=== PATIENT | female | born 1990 | race Asian ===

== ENCOUNTER 2017-04-15 07:58 | Inpatient (IN) | payer MEDICAID ==
[~2017-04-15] VITALS: Ht 160 cm; Wt 74.8 kg
[2017-04-15] MEDS ORDERED: LACTATED RINGERS 1,000 ML IV SCH (08:12)
[2017-04-15] MEDS ORDERED: DEXT 5%/LR + PITOCIN 20UNITS/L 1,000 ML IV SCH ×2 (08:12→08:36)
[2017-04-15] MEDS ORDERED: METHYLERGONOVINE MALEATE 0.2 MG/ML IM PRN (08:15)
[2017-04-15] MEDS ORDERED: MISOPROSTOL 100MCG TABLET VG SCH (08:15)
[2017-04-15] MEDS ORDERED: BUTORPHANOL TARTRATE 2 MG/ML VIAL IV PRN (08:15)
[2017-04-15] MEDS ORDERED: LIDOCAINE HCL 1% 20ML VIAL (Pyxis) INJ INFIL SCH (08:15)
[2017-04-15] MEDS ORDERED: BUTORPHANOL TARTRATE 2 MG/ML VIAL ONE (08:16)
[2017-04-15] MEDS ORDERED: FENTANYL CITRATE/PF 50MCG/ML 2ML VIAL ONE (08:19)
[2017-04-15] MEDS ORDERED: MIDAZOLAM HCL 2 MG/2 ML VIAL ONE (08:20)
[2017-04-15] MEDS ORDERED: PROPOFOL 200MG/20ML VIAL IV ONE (08:25)
[2017-04-15] MEDS ORDERED: ACETAMINOPHEN 500MG TABLET PO PRN (08:45)
[2017-04-15] MEDS ORDERED: RHO(D) IMMUNE GLOBULIN 300 MCG/SYR IM PRN (08:45)
[2017-04-15] MEDS ORDERED: BENZOCAINE/LANOLIN/ALOE VERA SPRAY TOP PRN (08:45)
[2017-04-15] MEDS ORDERED: INFLUENZA VIRUS VACCINE 0.5ML SYR IM ONE (08:45)
[2017-04-15] MEDS ORDERED: IBUPROFEN 600MG TABLET PO PRN (08:45)
[2017-04-15] MEDS ORDERED: GLYCERIN/WITCH HAZEL LEAF MEDICATED PAD TOP PRN (08:45)
[2017-04-15] MEDS ORDERED: HEMORRHOIDAL SUPP PR PRN (08:45)
[2017-04-15] MEDS ORDERED: TETANUS, DIPHTHERIA, PERTUSSIS VAC/PF 0.5ML (>7YR OLD) IM ONE (08:45)
[2017-04-15] MEDS ORDERED: LANOLIN OINT 0.25 GM TUBE TOP PRN (08:45)
[2017-04-15] MEDS ORDERED: DIPHENHYDRAMINE 25MG CAPSULE PO PRN (08:45)
[2017-04-15] MEDS ORDERED: WATER IV SCH (09:00)
[2017-04-15] MEDS ORDERED: AMPICILLIN 2,000 MG in SODIUM CHLORIDE 0.9% 100 ML IV SCH (09:00)
[2017-04-15] MEDS ORDERED: PRENATAL VIT/FE FUMARATE/FA TABLET PO SCH (09:00)
[2017-04-15] MEDS ORDERED: AMPICILLIN IV SCH (09:00)
[2017-04-15] MEDS ORDERED: DEXT 5% IV SCH (09:00)
[2017-04-15] MEDS ORDERED: GENTAMICIN 120MG PREMIX 100 ML IV SCH (10:30)
[2017-04-15 10:55] LABS: BASOPHILS % 0.3 % (0.0-2.0); EOSINOPHILS % 0.3 % (0.0-5.0); HEMATOCRIT. 31.1 % (36.0-48.0); HEMOGLOBIN. 10.7 g/dL (12.0-16.0); LYMPHOCYTES % 14.5 % (20.0-50.0); MEAN CORPUSCULAR HEMOGLOBIN 30.2 pg (28.0-32.0); MEAN CORPUSCULAR VOLUME 87.9 fL (81.0-99.0); MEAN PLATELET VOLUME 7.7 fl (7.4-10.4); MONOCYTES % 5.6 % (2.0-8.0); NEUTROPHILS % 79.3 % (40.0-76.0); PLATELET 373 x1000/uL (130-400); RED BLOOD CELL COUNT 3.54 mill/uL (4.2-5.4); RED CELL DISTRIBUTION WIDTH 13.4 % (11.6-14.6)
[2017-04-15 10:58] LABS: CLARITY URINE CLEAR (CLEAR); COLOR URINE DARK YELLOW (YELLOW); GLUCOSE URINE NEGATIVE (NEGATIVE); KETONES URINE NEGATIVE (NEGATIVE); LEUKOCYTE ESTERASE URINE NEGATIVE (NEGATIVE); NITRITE URINE NEGATIVE (NEGATIVE); OCCULT BLOOD URINE TRACE (NEGATIVE); PH URINE 5.5 (4.5-8.0); PROTEIN URINE 3+ (NEGATIVE); SPECIFIC GRAVITY URINE 1.035 (1.005-1.030)
[2017-04-15 11:02] LABS: CHLORIDE 108 mEq/L (98-107)
[2017-04-15 11:04] LABS: PARTIAL THROMBOPLASTIN TIME 27.1 sec (23.4-31.0); PROTHROMBIN TIME 10.2 sec (9.4-11.6)
[2017-04-15 11:13] LABS: CARBON DIOXIDE 26 mEq/L (21-32)
[2017-04-15 11:14] LABS: D-DIMER 9.04 mg/L FEU (<0.50)
[2017-04-15 11:18] LABS: *AMPHETAMINES SCREEN URINE NEGATIVE (NEGATIVE); *BARBITURATES SCREEN URINE NEGATIVE (NEGATIVE); *BENZODIAZEPINES SCREEN URINE NEGATIVE (NEGATIVE); METHADONE URINE SCREEN NEGATIVE (NEGATIVE); OPIATES URINE SCREEN NEGATIVE (NEGATIVE); PHENCYCLIDINE URINE SCREEN NEGATIVE (NEGATIVE)
[2017-04-15 11:36] LABS: CANNABINOID URINE SCREEN PRESUMTIVE POSITIVE (NEGATIVE)
[2017-04-15 11:37] LABS: *COCAINE SCREEN URINE PRESUMTIVE POSITIVE (NEGATIVE)
[2017-04-15] MEDS: ACETAMINOPHEN WITH CODEINE 300/30MG TABLET PO PRN ×2 (11:37→15:16)
[2017-04-15 11:42] LABS: HEPATITIS B SURFACE ANTIGEN NEGATIVE; RUBELLA IGG 37.7 IU/mL (4.99-10)
[2017-04-15 12:58] VITALS: BP 121/86
[2017-04-15] MEDS ORDERED: ALBUTEROL (0.083%) 2.5MG/3ML NEB HHN NR (14:00)
[2017-04-15 14:05] VITALS: BP 133/75
[2017-04-15 15:16] VITALS: BP 133/75
[2017-04-15] MEDS ORDERED: NON FORMULARY PATIENT HOME MED EA ORI SCH (15:45)
[2017-04-15] MEDS ORDERED: GENTAMICIN 80MG PREMIX 100 ML IV SCH (20:00)
[2017-04-15] MEDS ORDERED: SODIUM CHLORIDE 0.9% IV SCH (20:00)
[2017-04-15] MEDS ORDERED: GENTAMICIN SULFATE IV SCH (20:00)
[2017-04-15] MEDS ORDERED: ALBUTEROL (0.083%) 2.5MG/3ML NEB HHN SCH (20:00)
[2017-04-15] MEDS ORDERED: DOCUSATE SODIUM 100MG CAPSULE PO SCH (21:00)
[2017-04-16] MEDS ORDERED: FERROUS SULFATE 325MG TABLET PO SCH (12:10)
== END 2017-04-15 18:15 | disposition left against medical advice (07) | DRG 560 ==
LOC: L&D 07:58 → 7EST PP/OB 12:34
PROVIDERS: ADMIT Specialist; ATTEND Specialist
PROC: 0HQ9XZZ Repair Perineum Skin, External Approach (ICD-10-PCS; 2017-04-15)
PROC: 10J17ZZ Inspection of Products of Conception, Retained, Via Natural or Artificial Opening (ICD-10-PCS; principal; 2017-04-15 07:50)
DX: O90.89 Other complications of the puerperium, not elsewhere classified (principal); Z37.0 Single live birth; O99.345 Other mental disorders complicating the puerperium; F41.9 Anxiety disorder, unspecified; Z53.21 Procedure and treatment not carried out due to patient leaving prior to being seen by health care provider; O43.90 Unspecified placental disorder, unspecified trimester; F17.200 Nicotine dependence, unspecified, uncomplicated; O99.315 Alcohol use complicating the puerperium; O99.335 Smoking (tobacco) complicating the puerperium; Z91.410 Personal history of adult physical and sexual abuse; Z72.89 Other problems related to lifestyle; O70.0 First degree perineal laceration during delivery
CPT/HCPCS: 36415; 80053; 80305; 80349; 80353; 81001; 82565; 84550; 85025; 85379; 85384; 85610; 85730; 86592; 86703; 86762; 86850; 86900; 87340; 94640; 99281; J0290; J0595; J1580; J2250; J2590; J2704; J3010; J3490; J7050; J7060; J7611

== ENCOUNTER 2017-04-22 10:59 | Emergency (ER) | payer MEDICAID ==
[~2017-04-22] VITALS: Ht 160 cm; Wt 74.0 kg
[2017-04-22 14:16] LABS: PROTHROMBIN TIME 10.5 sec (9.4-11.6)
[2017-04-22 14:21] LABS: BASOPHILS % 0.8 % (0.0-2.0); EOSINOPHILS % 2.9 % (0.0-5.0); HEMATOCRIT. 32.4 % (36.0-48.0); HEMOGLOBIN. 10.8 g/dL (12.0-16.0); MEAN CORPUSCULAR HEMOGLOBIN 29.9 pg (28.0-32.0); MEAN CORPUSCULAR VOLUME 89.9 fL (81.0-99.0); MEAN PLATELET VOLUME 7.1 fl (7.4-10.4); MONOCYTES % 4.3 % (2.0-8.0); PLATELET 606 x1000/uL (130-400)
[2017-04-22 14:25] LABS: CARBON DIOXIDE 25 mEq/L (21-32); CHLORIDE 106 mEq/L (98-107)
[2017-04-22 14:26] LABS: GLUCOSE URINE NEGATIVE (NEGATIVE); KETONES URINE NEGATIVE (NEGATIVE); LEUKOCYTE ESTERASE URINE NEGATIVE (NEGATIVE); NITRITE URINE NEGATIVE (NEGATIVE); OCCULT BLOOD URINE TRACE (NEGATIVE); PROTEIN URINE 1+ (NEGATIVE); SPECIFIC GRAVITY URINE 1.087 (1.005-1.030)
[2017-04-22 14:32] LABS: CLARITY URINE CLEAR (CLEAR); COLOR URINE YELLOW (YELLOW)
[2017-04-22] MEDS ORDERED: ACETAMINOPHEN 500MG TABLET PO ONE (16:15)
[2017-04-22 19:40] VITALS: BP 126/84
[2017-04-22 19:44] LABS: *AMPHETAMINES SCREEN URINE NEGATIVE (NEGATIVE); *BARBITURATES SCREEN URINE NEGATIVE (NEGATIVE); *BENZODIAZEPINES SCREEN URINE NEGATIVE (NEGATIVE); METHADONE URINE SCREEN NEGATIVE (NEGATIVE); PHENCYCLIDINE URINE SCREEN NEGATIVE (NEGATIVE)
[2017-04-22 19:45] LABS: *COCAINE SCREEN URINE PRESUMTIVE POSITIVE (NEGATIVE); CANNABINOID URINE SCREEN PRESUMTIVE POSITIVE (NEGATIVE); OPIATES URINE SCREEN PRESUMTIVE POSITIVE (NEGATIVE)
== END 2017-04-22 19:59 | disposition home or self-care (01) ==
LOC: ER 11:47
DX: N39.0 Urinary tract infection, site not specified (principal); D64.9 Anemia, unspecified; F17.200 Nicotine dependence, unspecified, uncomplicated
CPT/HCPCS: 36415; 76856; 80053; 80305; 81001; 81025; 83690; 84702; 85025; 85610; 99285

== ENCOUNTER 2017-05-07 13:22 | Emergency (ER) | payer MEDICAID ==
[~2017-05-07] VITALS: Ht 160 cm; Wt 73.0 kg
[~2017-05-07 13:22] MED LIST: LORA2TAB95 PO
[2017-05-07] MEDS ORDERED: METR500T4 PO (14:53)
[2017-05-07] MEDS ORDERED: DOXY100C2 PO (14:53)
[2017-05-07] MEDS ORDERED: OLAN10TA19 PO (14:53)
[2017-05-07] MEDS: SODIUM CHLORIDE 0.9% 1,000 ML IV NR ×2 (15:52→16:03)
[2017-05-07 16:42] VITALS: BP 150/89
== END 2017-05-07 17:34 | disposition home or self-care (01) ==
LOC: ER 14:00
DX: O90.89 Other complications of the puerperium, not elsewhere classified (principal); F41.9 Anxiety disorder, unspecified; R51 Headache
CPT/HCPCS: 81025; 93005; 96360; 99284; Z7610

== ENCOUNTER 2017-05-20 18:12 | Emergency (ER) | payer MEDICAID ==
[~2017-05-20] VITALS: Ht 157.5 cm; Wt 78.0 kg
[~2017-05-20 18:12] MED LIST changes: +DOXY100C2 PO; +METR500T4 PO; +OLAN10TA19 PO
[2017-05-20] MEDS ORDERED: DIPHENHYDRAMINE 50MG/ML VIAL IV STA (18:32)
[2017-05-20] MEDS ORDERED: KETOROLAC 30MG/ML VIAL IV STA (18:32)
[2017-05-20] MEDS ORDERED: LABETALOL HCL 20MG/4ML CARPUJECT IV ONE (18:45)
[2017-05-20 19:01] LABS: BASOPHILS % 0.6 % (0.0-2.0); EOSINOPHILS % 4.2 % (0.0-5.0); HEMATOCRIT. 36.8 % (36.0-48.0); HEMOGLOBIN. 12.3 g/dL (12.0-16.0); LYMPHOCYTES % 12.7 % (20.0-50.0); MEAN CORPUSCULAR VOLUME 86.4 fL (81.0-99.0); MEAN PLATELET VOLUME 7.1 fl (7.4-10.4); NEUTROPHILS % 78.5 % (40.0-76.0); PLATELET 593 x1000/uL (130-400); RED BLOOD CELL COUNT 4.26 mill/uL (4.2-5.4)
[2017-05-20 19:10] LABS: AMMONIA 26 uMol/L (<32)
[2017-05-20 19:11] LABS: CHLORIDE 104 mEq/L (98-107)
[2017-05-20 19:15] LABS: CARBON DIOXIDE 24 mEq/L (21-32)
[2017-05-20 19:21] LABS: TROPONIN I < 0.02 ng/mL (0.00-0.04)
[2017-05-20 21:30] LABS: *AMPHETAMINES SCREEN URINE NEGATIVE (NEGATIVE); *BARBITURATES SCREEN URINE NEGATIVE (NEGATIVE); *COCAINE SCREEN URINE NEGATIVE (NEGATIVE); CANNABINOID URINE SCREEN NEGATIVE (NEGATIVE); METHADONE URINE SCREEN NEGATIVE (NEGATIVE); OPIATES URINE SCREEN NEGATIVE (NEGATIVE); PHENCYCLIDINE URINE SCREEN NEGATIVE (NEGATIVE)
[2017-05-20] MEDS ORDERED: ACETAMINOPHEN 325MG TABLET PO ONE (21:30)
[2017-05-20 21:31] LABS: *BENZODIAZEPINES SCREEN URINE PRESUMTIVE POSITIVE (NEGATIVE)
[2017-05-20 23:54] VITALS: BP 115/70
== END 2017-05-21 00:06 | disposition home or self-care (01) ==
LOC: ER 19:29
DX: F13.10 Sedative, hypnotic or anxiolytic abuse, uncomplicated (principal); R51 Headache; I16.0 Hypertensive urgency; I10 Essential (primary) hypertension; F17.290 Nicotine dependence, other tobacco product, uncomplicated; F41.9 Anxiety disorder, unspecified; F43.10 Post-traumatic stress disorder, unspecified; Z88.6 Allergy status to analgesic agent; Z90.49 Acquired absence of other specified parts of digestive tract
CPT/HCPCS: 36415; 70450; 80053; 80305; 81025; 82140; 84484; 85025; 93005; 96374; 96375; 99291; 99406; J1200; J1885; J3490; Z7610

== ENCOUNTER 2017-05-27 01:00 | Emergency (ER) | payer MEDICAID ==
[~2017-05-27] VITALS: Ht 165.1 cm; Wt 68.0 kg
[2017-05-27 01:50] LABS: HEMATOCRIT. 35.3 % (36.0-48.0); HEMOGLOBIN. 11.5 g/dL (12.0-16.0); MEAN CORPUSCULAR HEMOGLOBIN 27.9 pg (28.0-32.0); MEAN CORPUSCULAR VOLUME 85.8 fL (81.0-99.0); MEAN PLATELET VOLUME 6.9 fl (7.4-10.4); PLATELET 578 x1000/uL (130-400); RED BLOOD CELL COUNT 4.12 mill/uL (4.2-5.4)
[2017-05-27 02:07] LABS: B-HCG QUANTITATIVE < 1 mIU/mL (<3); CARBON DIOXIDE 25 mEq/L (21-32); CHLORIDE 105 mEq/L (98-107)
[2017-05-27 03:31] LABS: PLATELET ESTIMATE NORMAL
[2017-05-27 03:53] LABS: CLARITY URINE TURBID (CLEAR); COLOR URINE YELLOW (YELLOW); KETONES URINE TRACE (NEGATIVE); LEUKOCYTE ESTERASE URINE TRACE (NEGATIVE); NITRITE URINE NEGATIVE (NEGATIVE); OCCULT BLOOD URINE 3+ (NEGATIVE); PROTEIN URINE 3+ (NEGATIVE); SPECIFIC GRAVITY URINE 1.033 (1.005-1.030)
[2017-05-27 04:24] LABS: *AMPHETAMINES SCREEN URINE NEGATIVE (NEGATIVE); *BARBITURATES SCREEN URINE NEGATIVE (NEGATIVE); CANNABINOID URINE SCREEN NEGATIVE (NEGATIVE); METHADONE URINE SCREEN NEGATIVE (NEGATIVE); OPIATES URINE SCREEN NEGATIVE (NEGATIVE); PHENCYCLIDINE URINE SCREEN NEGATIVE (NEGATIVE)
[2017-05-27] MEDS ORDERED: CEPHALEXIN 500MG CAPSULE PO ONE ×2 (05:00→19:45)
[2017-05-27 05:02] LABS: *BENZODIAZEPINES SCREEN URINE PRESUMTIVE POSITIVE (NEGATIVE); *COCAINE SCREEN URINE PRESUMTIVE POSITIVE (NEGATIVE)
[2017-05-27] MEDS: OLANZAPINE 5MG TABLET PO SCH ×3 (05:20→17:56)
[2017-05-27] MEDS: LITHIUM CARBONATE 150 MG CAPSULE PO SCH ×3 (05:51→17:56)
[2017-05-27] MEDS ORDERED: TRAMADOL 50MG TABLET PO ONE (22:15)
[2017-05-28] MEDS ORDERED: TRAMADOL 50MG TABLET PO ONE (08:39)
[2017-05-28] MEDS: OLANZAPINE 5MG TABLET PO SCH (08:48)
[2017-05-28 15:17] VITALS: BP 112/72
== END 2017-05-28 17:14 ==
LOC: ER 01:00
DX: F20.9 Schizophrenia, unspecified (principal); N89.8 Other specified noninflammatory disorders of vagina; R53.1 Weakness; R10.2 Pelvic and perineal pain; I10 Essential (primary) hypertension; F43.10 Post-traumatic stress disorder, unspecified; F17.200 Nicotine dependence, unspecified, uncomplicated; F14.10 Cocaine abuse, uncomplicated; Z88.6 Allergy status to analgesic agent; Z91.410 Personal history of adult physical and sexual abuse
CPT/HCPCS: 36415; 76856; 80053; 80178; 80305; 81001; 81025; 84702; 85025; 86850; 86900; 86901; 99285; Z7610